=== PATIENT | female | born 1985 | race Caucasian/White ===

== ENCOUNTER 2016-07-24 06:13 | Emergency (ER) | payer BC, MEDICAID ==
[~2016-07-24] VITALS: Ht 157.5 cm; Wt 66.0 kg
[~2016-07-24 06:13] MED LIST: CIPR500T4 PO; FLUC150T17 PO; PHEN-537 PO
[2016-07-24 06:17] VITALS: Ht 157.5 cm; Wt 66.0 kg
--- NOTE | 2016-07-24 06:31 | ERD ---
ER Documentation Chief Complaint Date/Time DATE: 07/24/16 TIME: 06:29 Chief Complaint Pelvic pain, frequency of urination HPI This a 30-year-old female who presents the emergency department today complaining of some pelvic pressure and urinary urgency and frequency that started this morning. States her last menstrual period was July 01. States she is sexually active with one partner.Denies any fevers or chills, nausea vomiting, vaginal bleeding or vaginal discharge. ROS All systems reviewed and are negative except as per history of present illness. Medications Home Meds Active Scripts Ibuprofen* (Motrin*) 600 Mg Tab, 600 MG PO Q6, #30 TAB Prov:SILVESTRE CIFUENTES PA-C 07/24/16 Cephalexin* (Keflex*) 500 Mg Capsule, 500 MG PO QID for 7 Days, CAP Prov:SILVESTRE CIFUENTES PA-C 07/24/16 Phenazopyridine Hcl* (Pyridium*) 100 Mg Tab, 100 MG PO TID Y for PAIN, #6 TAB Prov:GRETEL DE LA VEGA DO 12/20/14 Fluconazole* (Diflucan*) 150 Mg Tablet, 150 MG PO ONCE, #1 TAB Prov:GRETEL DE LA VEGA DO 12/20/14 Ciprofloxacin Hcl* (Ciprofloxacin Hcl*) 500 Mg Tablet, 500 MG PO BID for 3 Days , TAB Prov:GRETEL DE LA VEGA DO 12/20/14 Allergies Allergies: Coded Allergies: No Known Drug Allergy (Verified Allergy, Mild, 12/20/14) PMhx/Soc History of Surgery: No Anesthesia Reaction: No Hx Neurological Disorder: No Hx Respiratory Disorders: No Hx Cardiac Disorders: No Hx Psychiatric Problems: No Hx Miscellaneous Medical Probl: Yes (UTI) Hx Alcohol Use: No Hx Substance Use: No Hx Tobacco Use: No Physical Exam Vitals Vital Signs Date Time Temp Pulse Resp B/P Pulse Ox O2 Delivery O2 Flow Rate FiO2 07/24/16 06:17 99.0 70 20 105/53 100 Physical Exam Const: No acute distress Head: Atraumatic Eyes: Normal Conjunctiva ENT: Normal External Ears, Nose and Mouth. Neck: Full range of motion..~ No meningismus. Resp: Clear to auscultation bilaterally Cardio: Regular rate and rhythm, no murmurs Abd: Soft, suprapubic tenderness, non distended. Normal bowel sounds. No right lower quadrant pain. No tenderness at McBurney's. Skin: No petechiae or rashes Back: No midline or flank tenderness. No CVA tenderness. Neur: Awake and alert Psych: Normal Mood and Affect Results 24 hrs Laboratory Tests Test 07/24/16 06:39 Bedside Urine Blood Trace-intact Bedside Urine Glucose (UA) Negative Bedside Urine Ketones (LAB) Negative Bedside Urine Leukocyte Esterase (L 1+ Bedside Urine Nitrite (LAB) Negative Bedside Urine Protein (LAB) Negative Bedside Urine pH (LAB) 6.5 Procedures/MDM This is a 30-year-old female who presents the emergency department today complaining of urinary frequency, urgency and some lower pelvic pain that started this morning. I did obtain a UA and urine test UA shows 1+ leukocyte Estrace negative nitrites. I will treat the patient for urinary tract infection. Urine test is negative Patient is afebrile and otherwise well-appearing. Low suspicion for pyelonephritis or nephrolithiasis. Patient has no right lower quadrant pain and no left lower quadrant pain. She has no vaginal bleeding or vaginal discharge. I do not feel that she requires laboratory workup or further imaging at this time. Low suspicion for ovarian torsion, tubal ovarian abscess , ectopic . Patient will be given a prescription for Keflex and Motrin. At this time the patient is stable for discharge and outpatient management. Patient should follow up with their PCP in the next 1-2 days. They may return to the emergency department sooner for any persistent or worsening of symptoms. Patient understood and agreed with the plan. Departure Diagnosis: Primary Impression: UTI (urinary tract infection) Urinary tract infection type: site unspecified Hematuria presence: without hematuria Qualified Code: N39.0 - Urinary tract infection without hematuria, site unspecified Condition: SILVESTRE Thomas PA-C Jul 24, 2016 06:31
[2016-07-24 06:36] LABS: URINE BLOOD (Dip) POC Trace-intact (NEGATIVE)
[2016-07-24] MEDS ORDERED: IBUP-1542 PO (06:48)
[2016-07-24] MEDS ORDERED: CEPH-443 PO (06:48)
== END 2016-07-24 06:55 | disposition home or self-care (01) ==
LOC: FTE 06:13
DX: N39.0 Urinary tract infection, site not specified (principal)
CPT/HCPCS: 81003; Z7502; 99283

== ENCOUNTER 2018-07-13 19:23 | Emergency (ER) | payer BC ==
[~2018-07-13] VITALS: Ht 160 cm; Wt 69.0 kg
[~2018-07-13 19:23] MED LIST changes: +CEPH-443 PO; +FLUC150T PO; -FLUC150T17 PO; +IBUP-1542 PO
[2018-07-13 19:32] VITALS: Ht 160 cm; Wt 69.0 kg
--- NOTE | 2018-07-14 01:58 | ERD ---
ER Documentation Chief Complaint Chief Complaint painful/burning urination x 1 day HPI This is a 32-year-old female who presents emergency department with complaints of dysuria, burning of urination for about a day. LMP: 06/25/2017. . Denies headache, head injury, loss of consciousness, dizziness, neck pain, neck stiffness, throat pain, difficulty swallowing, difficulty breathing lying flat, shoulder pain, chest pain, back pain, abdominal pain, nausea, vomiting, constipation, diarrhea, urinary symptoms, or possibility being , loss of bowel and bladder control, trauma, injury, falls, difficulty walking due to pain, numbness or tingling sensation, calf pain, recent travel, recent major surgery in the last 3 weeks, calf pain, recent long travel, recent exposure to any illness, recent antibiotic use in the last 3 months, fever, chills, seizures. Past medical history: Surgical history: Social: Denies smoking, use of alcoholic beverages, use of illegal drugs. ROS All systems reviewed and are negative except as per history of present illness. Medications Home Meds Active Scripts Ibuprofen* (Motrin*) 600 Mg Tab, 600 MG PO Q6H PRN for PAIN AND OR ELEVATED TEMP, #30 TAB Prov:PASILABAN,KLAR F 07/14/18 Phenazopyridine Hcl* (Pyridium*) 100 Mg Tab, 100 MG PO TID PRN for URINARY PAIN, #8 TAB Prov:PASILABAN,SAMAR F 07/14/18 Cephalexin* (Keflex*) 500 Mg Capsule, 500 MG PO TID for 7 Days, CAP Prov:PASILABAN,SAMAR F 07/14/18 Ibuprofen* (Motrin*) 600 Mg Tab, 600 MG PO Q6, #30 TAB Prov:SILVESTRE CIFUENTES PA-C 07/24/16 Cephalexin* (Keflex*) 500 Mg Capsule, 500 MG PO QID for 7 Days, CAP Prov:SILVESTRE CIFUENTES PA-C 07/24/16 Phenazopyridine Hcl* (Pyridium*) 100 Mg Tab, 100 MG PO TID PRN for PAIN, #6 TAB Prov:GRETEL DE LA VEGA DO 12/20/14 Fluconazole* (Diflucan*) 150 Mg Tablet, 150 MG PO ONCE, #1 TAB Prov:GRETEL DE LA VEGA DO 12/20/14 Ciprofloxacin Hcl* (Ciprofloxacin Hcl*) 500 Mg Tablet, 500 MG PO BID for 3 Days, TAB Prov:GRETEL DE LA VEGA DO 12/20/14 Allergies Allergies: Coded Allergies: No Known Drug Allergy (Verified Allergy, Mild, 12/20/14) PMhx/Soc History of Surgery: No Anesthesia Reaction: No Hx Neurological Disorder: No Hx Respiratory Disorders: No Hx Cardiac Disorders: No Hx Psychiatric Problems: No Hx Miscellaneous Medical Probl: Yes (UTI) Hx Alcohol Use: No Hx Substance Use: No Hx Tobacco Use: No Smoking Status: Never smoker Physical Exam Vitals Vital Signs Date Temp Pulse Resp B/P (MAP) Pulse Ox O2 O2 Flow FiO2 Time Delivery Rate 07/14/18 60 16 134/73 99 Room Air 03:06 (93) 07/13/18 99.0 75 18 158/81 98 19:32 (106) Physical Exam Const: No acute distress Head: Atraumatic Eyes: Normal Conjunctiva ENT: Normal External Ears, Nose and Mouth. Neck: Full range of motion. No meningismus. Resp: Clear to auscultation bilaterally Cardio: Regular rate and rhythm, no murmurs Abd: Soft, non tender, non distended. Normal bowel sounds. Suprapubic tenderness. Negative Laurent sign. Negative Cromwell sign (heel jar test). Negative psoas sign. Negative Rovsing sign. Able to jump 10 times without developing abdominal pain. Skin: No petechiae or rashes Back: No midline or flank tenderness Ext: No cyanosis, or edema Neur: Awake and alert. No neurological deficits. Psych: Normal Mood and Affect Results 24 hrs Laboratory Tests Test 07/14/18 02:13 07/14/18 02:14 Bedside Urine pH (LAB) 6.0 Bedside Urine Protein (LAB) Trace Bedside Urine Glucose (UA) Negative Bedside Urine Ketones (LAB) Negative Bedside Urine Blood Trace-intact Bedside Urine Nitrite (LAB) Negative Bedside Urine Leukocyte Esterase (L 1+ POC Beta HCG, Qualitative NEGATIVE Current Medications Medications Dose Sig/Bennie Start Time Status Last (Trade) Ordered Route PRN Stop Time Admin Dose Reason Admin Ibuprofen 600 mg ONCE ONCE 07/14/18 DC 07/14/18 (Motrin) PO 03:30 03:04 07/14/18 03:30 Procedures/MDM Diagnostic tests: POC urine : Negative. Urine dipstick: +1 for leukocyte esterase. Urinalysis: Sent. Culture urine: Sent. Treatment: Motrin. Re-evaluation: Denies pain. Negative Laurent sign. Negative Jennifer sign (heel jar test). Negative psoas sign. Negative Rovsing sign. Able to jump 5 times without developing lower abdominal pain. Differential diagnosis I have low suspicion for sepsis, pancreatitis, cholecystitis, diverticulitis, appendicitis, pyelonephritis, obstructing kidney stones, bowel obstruction. Final diagnosis: UTI. Dysuria. Prescription: Keflex. Pyridium. Motrin. Follow-up with PCP in the next 24-48 hours. Come back here in the emergency department for any new symptoms or any worsening symptoms. All questions and concerns were answered. Patient and family members verbalized understanding and agreed with plan of care. Hemodynamically stable on discharge. Departure Diagnosis: Primary Impression: UTI (urinary tract infection) Additional Impression: Dysuria Condition: Stable Additional Instructions: Follow-up with PCP in the next 24-48 hours. Come back here in the emergency d epartment for any new symptoms or any worsening symptoms. ROGER DE LA GARZA Jul 14, 2018 01:58
[2018-07-14] MEDS ORDERED: CEPH-443 PO (03:00)
[2018-07-14] MEDS ORDERED: IBUP-1542 PO (03:00)
[2018-07-14] MEDS ORDERED: PHEN-537 PO (03:00)
[2018-07-14 03:06] VITALS: BP 134/73; PULSE 60; RESP 16
[2018-07-14] MEDS ORDERED: IBUPROFEN 600 MG TAB PO ONE (03:30)
== END 2018-07-14 03:07 | disposition home or self-care (01) ==
LOC: FTE 19:23
DX: N39.0 Urinary tract infection, site not specified (principal)
CPT/HCPCS: 81003; 81025; Z7502; Z7610; 99283

== ENCOUNTER 2018-11-26 19:30 | Emergency (ER) | payer BC ==
[~2018-11-26] VITALS: Ht 157.5 cm; Wt 66.9 kg
[2018-11-26 19:45] VITALS: Ht 157.5 cm; Wt 66.9 kg
[2018-11-26] MEDS ORDERED: KETOROLAC 30 MG INJ IM STA (20:20)
--- NOTE | 2018-11-26 20:26 | ERD ---
ER Documentation Chief Complaint Chief Complaint lower back pain x 2 weeks, denies trauma HPI 33-year-old female presented to the emergency department complaining of bilateral low back pain with radiation down her right leg intermittently for the past 2 weeks after heavy lifting at the gym. She took ibuprofen with some relief. Her current pain is rated 3/10 in severity and worse with movement. She denies any fevers, chills, loss of bowel or bladder function, dysuria, hematuria, abdominal pain, nausea, vomiting, diarrhea, or other symptoms at this time. ROS All systems reviewed and are negative except as per history of present illness. Medications Home Meds Active Scripts Naproxen* (Naprosyn*) 500 Mg Tablet, 500 MG PO BID PRN for PAIN AND/OR INFLAMMATION, #30 TAB Prov:ANDRES THOMAS PA-C 11/26/18 Cyclobenzaprine Hcl* (Cyclobenzaprine Hcl*) 10 Mg Tablet, 10 MG PO TID, #15 TAB Prov:ANDRES THOMAS PA-C 11/26/18 Ibuprofen* (Motrin*) 600 Mg Tab, 600 MG PO Q6H PRN for PAIN AND OR ELEVATED TEMP, #30 TAB Prov:PASILABAN,SAMAR F 07/14/18 Phenazopyridine Hcl* (Pyridium*) 100 Mg Tab, 100 MG PO TID PRN for URINARY PAIN, #8 TAB Prov:PASILABAN,SAMAR F 07/14/18 Cephalexin* (Keflex*) 500 Mg Capsule, 500 MG PO TID for 7 Days, CAP Prov:PASILABAN,SAMAR F 07/14/18 Ibuprofen* (Motrin*) 600 Mg Tab, 600 MG PO Q6, #30 TAB Prov:SILVESTRE CIFUENTES PA-C 07/24/16 Cephalexin* (Keflex*) 500 Mg Capsule, 500 MG PO QID for 7 Days, CAP Prov:SILVESTRE CIFUENTES PA-C 07/24/16 Phenazopyridine Hcl* (Pyridium*) 100 Mg Tab, 100 MG PO TID PRN for PAIN, #6 TAB Prov:GRETEL DE LA VEGA DO 12/20/14 Fluconazole* (Diflucan*) 150 Mg Tablet, 150 MG PO ONCE, #1 TAB Prov:GRETEL DE LA VEGA 12/20/14 Ciprofloxacin Hcl* (Ciprofloxacin Hcl*) 500 Mg Tablet, 500 MG PO BID for 3 Days, TAB Prov:GRETEL DE LA VEGA DO 12/20/14 Allergies Allergies: Coded Allergies: No Known Drug Allergy (Verified Allergy, Mild, 12/20/14) PMhx/Soc Medical and Surgical Hx: pt denies Surgical Hx History of Surgery: No Anesthesia Reaction: No Hx Neurological Disorder: No Hx Respiratory Disorders: No Hx Cardiac Disorders: No Hx Psychiatric Problems: No Hx Miscellaneous Medical Probl: Yes (UTI) Hx Alcohol Use: No Hx Substance Use: No Hx Tobacco Use: No Smoking Status: Never smoker FmHx Family History: No diabetes Physical Exam Vitals Physical Exam Const: No acute distress Head: Atraumatic Eyes: Normal Conjunctiva ENT: Normal External Ears, Nose and Mouth. Neck: Full range of motion. No meningismus. Resp: Clear to auscultation bilaterally Cardio: Regular rate and rhythm, no murmurs Abd: Soft, non tender, non distended. Normal bowel sounds. No rebound tenderness or guarding. No McBurney's point tenderness. Skin: No petechiae or rashes Back: No midline or flank tenderness. Tenderness palpation of the paraspinal muscles of the lumbar spine bilaterally. Positive straight leg raise on the right. Ext: No cyanosis, or edema Neur: Awake and alert Psych: Normal Mood and Affect Results 24 hrs Laboratory Tests Test 11/26/18 20:23 POC Beta HCG, Qualitative NEGATIVE Current Medications Medications Dose Sig/Bennie Start Time Status Last (Trade) Ordered Route PRN Stop Time Admin Dose Reason Admin Ketorolac 30 mg ONCE STAT 11/26/18 DC 11/26/18 Tromethamine IM 20:20 11/26/18 20:42 (Toradol) 20:22 10 mg ONCE ONCE 11/26/18 DC 11/26/18 Dexamethasone IM 20:30 11/26/18 20:42 (Decadron) 20:31 Procedures/MDM 33-year-old female resenting the emergency department complaining of bilateral low back pain with radiation down her right leg. History and physical examination is most consistent with low back pain with sciatica. The patient was administered Decadron and Toradol in the department with significant improvement of her symptoms. Patient's musculoskeletal symptoms have stabilized while they have been evaluated in the department and are appropriate for outpatient work up. No evidence of cauda equina, cord compression, infiltrative, or infectious etiology. No evidence of life-threatening pathology at time of discharge. Pt/family in agreement with discharge plan/diagnosis. Pt/family advised to return immediately with any new or worsening symptoms. Follow-up with primary care physician within the next 1-2 days. Departure Diagnosis: Primary Impression: Low back pain with sciatica Chronicity: acute Back pain laterality: bilateral Sciatica laterality: sciatica of right side Qualified Codes: M54.41 - Lumbago with sciatica, right side Condition: Fair Additional Instructions: Follow up with your PCP within the next 1-3 days for a repeat evaluation. If you require a referral to a specialist, your Primary Care Provider may be able to provide this for you. In most patient cases, a referral is not required. If you have further questions regarding this matter, please ask your Primary Care Provider. Return the the emergency department immediately if symptoms worsen or change. If you have any questions regarding medications, ask your pharmacist or us before you leave. If any adverse reactions, occur while taking your medications, discontinue the treatment and return to the emergency department immediately. If any new or worsening symptoms, uncontrolled fevers, or other unexplained symptoms occur, return to the emergency department immediately. Take your medications as directed, and complete the entire course of treatment. ANDRES THOMAS PA-C Nov 26, 2018 20:26
[2018-11-26] MEDS ORDERED: DEXAMETHASONE 10 MG/ML 1 ML INJ IM ONE (20:30)
[2018-11-26] MEDS ORDERED: CYCL10TA7 PO (21:11)
[2018-11-26] MEDS ORDERED: NAPR-985 PO (21:11)
[2018-11-26 21:29] VITALS: BP 106/60; PULSE 66; RESP 18
== END 2018-11-26 21:30 | disposition home or self-care (01) ==
LOC: E/R 19:30 → FTE 21:30
DX: M54.41 Lumbago with sciatica, right side (principal)
CPT/HCPCS: 81025; J1100; J1885